=== PATIENT | female | born 1960 | race Caucasian/White ===

== ENCOUNTER 2019-04-15 13:14 | Emergency (ER) | payer BC, OTHER ==
[2019-04-15 14:47] LABS: Absolute Lymphocytes (CBC) 0.9 K/uL (0.7-4.9); Basophils % 1.3 % (0-1.3); Eosinophils % 3.5 % (0-4.4); Hematocrit 42.7 % (36.0-45.0); Lymphocytes % 17.7 % (15.3-44.8); MPV 7.8 fL (7.6-11.3); Monocytes % 7.4 % (3.3-12.3); RBC Red Blood Cell Count 4.11 M/uL (3.86-4.86)
[2019-04-15 15:09] LABS: Potassium 4.5 mmol/L (3.5-5.1)
--- NOTE | 2019-04-15 15:26 | ER ---
Nurse's Notes [facility] Name: Alena Vázquez Age: 58 yrs Sex: Female : 1960 Arrival Date: 04/15/2019 Time: 13:15 Bed 30 Private MD: Jan Robertson T Diagnosis: Paresthesia of skin Presentation: 04/15 13:34 Presenting complaint: Patient states: numbness all over body that began when patient ss woke up this morning at 1200. Transition of care: patient was not received from another setting of care. Onset of symptoms was April 15, 2019. Risk Assessment: Do you want to hurt yourself or someone else? Patient reports no desire to harm self or others. Initial Sepsis Screen: Does the patient meet any 2 criteria? No. Patient's initial sepsis screen is negative. Does the patient have a suspected source of infection? No. Patient's initial sepsis screen is negative. 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 Care prior to arrival: None. 13:34 Method Of Arrival: Ambulatory ss 13:34 Acuity: KADEN 3 ss Historical: - Allergies: 13:36 Iodinated Contrast Media - IV Dye; ss - Immunization history:: Adult Immunizations up to date. - Social history:: Smoking status: Patient uses tobacco products, smokes one-half pack cigarettes per day. - Ebola Screening: : Patient denies exposure to infectious person Patient denies travel to an Ebola-affected area in the 21 days before illness onset. Screenin:46 Abuse screen: Denies threats or abuse. Denies injuries from another. Nutritional rv screening: No deficits noted. Tuberculosis screening: No symptoms or risk factors identified. Fall Risk None identified. Assessment: 14:42 General: Appears in no apparent distress. comfortable, Behavior is calm, cooperative. rv Pain: Denies pain. Neuro: Level of Consciousness is awake, alert, obeys commands, Oriented to person, place, time, situation. Cardiovascular: Patient's skin is warm and dry. Respiratory: Airway is patent. GI: No signs and/or symptoms were reported involving the gastrointestinal system. : No signs and/or symptoms were reported regarding the genitourinary system. EENT: No signs and/or symptoms were reported regarding the EENT system. Derm: Skin is intact. Musculoskeletal: Reports numbness in right arm and left arm. 16:08 Reassessment: No changes from previously documented assessment. Dr Pantoja talked to the rv patient, explained the results and plan of care. Dr Pantoja decided to do CT scan. Vital Signs: 13:36 BP 137 / 86; Pulse 86; Resp 16; Temp 97.7(TE); Pulse Ox 97% on R/A; Weight 83.91 kg; ss Height 5 ft. 7 in. (170.18 cm); 14:43 BP 116 / 68; Pulse 73; Resp 16; Pulse Ox 99% ; rv 16:07 BP 118 / 102; Pulse 83; Resp 16; Temp 97.8; Pulse Ox 98% ; Pain 0/10; rv 16:52 BP 116 / 98; Pulse 81; Resp 18; Temp 98; Pulse Ox 98% ; Pain 0/10; rv 13:36 Body Mass Index 28.97 (83.91 kg, 170.18 cm) ss NIH Stroke Scale Scores: 15:14 NIHSS Score: 0 gs ED Course: 13:15 Patient arrived in ED. as 13:15 Jan Robertson MD is Private Physician. as 13:36 Triage completed. ss 13:36 Arm band placed on right wrist. ss 13:53 Sonu Wahl, KANA is Primary Nurse. rv 14:02 Jose Pantoja MD is Attending Physician. gs 14:39 Inserted saline lock: 22 gauge in left forearm, using aseptic technique. Blood rv collected. 14:46 Patient has correct armband on for positive identification. Bed in low position. Call rv light in reach. Side rails up X 1. Pulse ox on. NIBP on. 16:[address] via stretcher. em2 16:16 CT completed. Patient moved back from CT. em2 16:16 CT Head Brain wo Cont In Process Unspecified. EDMS 16:40 Gene Rust MD is Referral Physician. gs 16:53 No provider procedures requiring assistance completed. IV discontinued, intact, rv bleeding controlled, No redness/swelling at site. Pressure dressing applied. Administered Medications: No medications were administered Outcome: 15:25 Discharge ordered by MD. gs 16:40 Discharge ordered by . gs 16:53 Discharged to home ambulatory. rv 16:53 Condition: good 16:53 Discharge instructions given to patient, family, Instructed on discharge instructions, follow up and referral plans. Demonstrated understanding of instructions, follow-up care. 16:53 Patient left the ED. rv NIH Stroke Scale - NIH Stroke Score Date: 04/15/2019 Time: 15:14 Total Score = 0 1a. Level of Consciousness (LOC) - 0(Alert) 1b. Level of Consciousness (LOC) (Year \T\ Age) - 0(Both) 1c. LOC Commands (Open \T\ Closes Eyes/Superintendent Menagerie) - 0(Both) 2. Best Gaze (Lateral Gaze Paresis) - 0(Normal) 3. Visual Field Loss - 0(No visual loss) 4. Facial Palsy - 0(Normal) 5a. Left Arm: Motor (10-second hold) - 0(No drift) 5b. Right Arm: Motor (10-second hold) - 0(No drift) 6a. Left Leg: Motor (5-second hold - always test supine) - 0(No drift) 6b. Right Leg: Motor (5-second hold - always test supine) - 0(No drift) 7. Limb Ataxia (finger/nose \T\ heel/hicks - test with eyes open) - 0(Absent) 8. Sensory Loss (pinprick arms/legs/face) - 0(Normal) 9. Best Language: Aphasia (description/naming/reading) - 0(No aphasia) 10. Dysarthria (speech clarity - read or repeat words) - 0(Normal) 11. Extinction and Inattention (visual/tactile/auditory/spatial/personal) - 0(No abnormality) Initials: Signatures: Dispatcher [employer] Candace Sanchez Shelby, RN RN ss Montes, Enrique em2 Starr, Gregory, MD MD Sonu Wahl RN RN rv
--- NOTE | 2019-04-15 15:26 | EDPHYS ---
Physician Documentation [facility] Name: Alena Vázquez Age: 58 yrs Sex: Female : 1960 Arrival Date: 04/15/2019 Time: 13:15 Bed 30 Private MD: Jan Robertson T ED Physician Jose Pantoja HPI: 04/15 15:14 This 58 yrs old Female presents to ER via Ambulatory with complaints of gs Numbness. 15:14 The patient's problem is reported as paresthesias, all over. Onset: The gs symptoms/episode began/occurred gradually, yesterday. Duration: The episode is continuous. The symptoms are alleviated by nothing. The symptoms are aggravated by nothing. Associated signs and symptoms: Pertinent positives: tingling, Pertinent negatives: abdominal pain, agitation, blurred vision, chest pain, combativeness, confusion, dizziness, headache, lightheadedness, shortness of breath, vomiting. Severity of symptoms: At their worst the symptoms were mild in the emergency department the symptoms are unchanged. The patient has experienced similar episodes in the past, a few times, says has been under a lot of stress. Historical: - Allergies: 13:36 Iodinated Contrast Media - IV Dye; ss - Immunization history:: Adult Immunizations up to date. - Social history:: Smoking status: Patient uses tobacco products, smokes one-half pack cigarettes per day. - Ebola Screening: : Patient denies exposure to infectious person Patient denies travel to an Ebola-affected area in the 21 days before illness onset. ROS: 15:14 All other systems are negative. gs Exam: 15:14 Head/Face: Normocephalic, atraumatic. Eyes: Pupils equal round and reactive to light, gs extra-ocular motions intact. Lids and lashes normal. Conjunctiva and sclera are non-icteric and not injected. Cornea within normal limits. Periorbital areas with no swelling, redness, or edema. ENT: Nares patent. No nasal discharge, no septal abnormalities noted. Tympanic membranes are normal and external auditory canals are clear. Oropharynx with no redness, swelling, or masses, exudates, or evidence of obstruction, uvula midline. Mucous membranes moist. Neck: Trachea midline, no thyromegaly or masses palpated, and no cervical lymphadenopathy. Supple, full range of motion without nuchal rigidity, or vertebral point tenderness. No Meningismus. Chest/axilla: Normal chest wall appearance and motion. Nontender with no deformity. No lesions are appreciated. Cardiovascular: Regular rate and rhythm with a normal S1 and S2. No gallops, murmurs, or rubs. Normal PMI, no JVD. No pulse deficits. Respiratory: Lungs have equal breath sounds bilaterally, clear to auscultation and percussion. No rales, rhonchi or wheezes noted. No increased work of breathing, no retractions or nasal flaring. Abdomen/GI: Soft, non-tender, with normal bowel sounds. No distension or tympany. No guarding or rebound. No evidence of tenderness throughout. Back: No spinal tenderness. No costovertebral tenderness. Full range of motion. Skin: Warm, dry with normal turgor. Normal color with no rashes, no lesions, and no evidence of cellulitis. MS/ Extremity: Pulses equal, no cyanosis. Neurovascular intact. Full, normal range of motion. 15:14 Constitutional: The patient appears in no acute distress, alert, awake. 15:14 ECG was reviewed by the Attending Physician. 15:14 Neuro: Orientation: is normal, Mentation: is normal, Memory: is normal, Cranial nerves: CN II- XII are normal as tested, Cerebellar function: is grossly normal, Motor: moves all fours, strength is 5/5 in all extremities, Sensation: no obvious gross deficits. Vital Signs: 13:36 BP 137 / 86; Pulse 86; Resp 16; Temp 97.7(TE); Pulse Ox 97% on R/A; Weight 83.91 kg; ss Height 5 ft. 7 in. (170.18 cm); 14:43 BP 116 / 68; Pulse 73; Resp 16; Pulse Ox 99% ; rv 16:07 BP 118 / 102; Pulse 83; Resp 16; Temp 97.8; Pulse Ox 98% ; Pain 0/10; rv 16:52 BP 116 / 98; Pulse 81; Resp 18; Temp 98; Pulse Ox 98% ; Pain 0/10; rv 13:36 Body Mass Index 28.97 (83.91 kg, 170.18 cm) NIH Stroke Scale Scores: 15:14 NIHSS Score: 0 gs MDM: 14:15 Patient medically screened. gs 15:14 Differential diagnosis: metabolic disorder, drug effects. Data reviewed: vital signs, nurses notes. Counseling: I had a detailed discussion with the patient and/or guardian regarding: the historical points, exam findings, and any diagnostic results supporting the discharge/admit diagnosis, the need for outpatient follow up. Response to treatment: the patient's symptoms have resolved after treatment, the patient's condition has returned to base line, and as a result, I will discharge patient. 16:39 Data reviewed: lab test result(s), EKG, radiologic studies. 04/15 14:15 Order name: CBC with Diff; Complete Time: 15:13 04/15 14:15 Order name: Basic Metabolic Panel; Complete Time: 15:13 04/15 14:15 Order name: CPK; Complete Time: 15:13 04/15 14:15 Order name: EKG; Complete Time: 14:18 04/15 14:15 Order name: EKG - Nurse/Tech; Complete Time: 14:25 04/15 15:48 Order name: CT Head Brain wo Cont; Complete Time: 16:38 gs EC:14 Rate is 73 beats/min. Rhythm is regular. SD interval is normal. QRS interval is normal. T waves are Inverted in lead V3. Clinical impression: NSR w/ Non-specific ST/T Changes and Abnormal EKG without significant change. Interpreted by me. Administered Medications: No medications were administered Disposition: 04/15/19 16:40 Discharged to Home. Impression: Paresthesia of skin. - Condition is Stable. - Discharge Instructions: Paresthesia, Iesp-hr-Eegm, Generalized Anxiety Disorder. - Medication Reconciliation Form, Thank You Letter, Antibiotic Education, Prescription Opioid Use form. - Follow up: Gene Rust MD; When: 2 - 3 days; Reason: Re-evaluation by your physician. - Problem is new. - Symptoms have improved. NIH Stroke Scale - NIH Stroke Score Date: 04/15/2019 Time: 15:14 Total Score = 0 1a. Level of Consciousness (LOC) - 0(Alert) 1b. Level of Consciousness (LOC) (Year \T\ Age) - 0(Both) 1c. LOC Commands (Open \T\ Closes Eyes/Catering Sales Manager) - 0(Both) 2. Best Gaze (Lateral Gaze Paresis) - 0(Normal) 3. Visual Field Loss - 0(No visual loss) 4. Facial Palsy - 0(Normal) 5a. Left Arm: Motor (10-second hold) - 0(No drift) 5b. Right Arm: Motor (10-second hold) - 0(No drift) 6a. Left Leg: Motor (5-second hold - always test supine) - 0(No drift) 6b. Right Leg: Motor (5-second hold - always test supine) - 0(No drift) 7. Limb Ataxia (finger/nose \T\ heel/hicks - test with eyes open) - 0(Absent) 8. Sensory Loss (pinprick arms/legs/face) - 0(Normal) 9. Best Language: Aphasia (description/naming/reading) - 0(No aphasia) 10. Dysarthria (speech clarity - read or repeat words) - 0(Normal) 11. Extinction and Inattention (visual/tactile/auditory/spatial/personal) - 0(No abnormality) Initials: Signatures: Dispatcher [employer] EDMS Cindy Atkinson RN RN ss Jose Pantoja MD MD Sonu Wahl RN RN rv Corrections: (The following items were deleted from the chart) 15:47 15:25 04/15/2019 15:25 Discharged to Home. Impression: Hyperventilation; Paresthesia of skin. Condition is Stable. Forms are Medication Reconciliation Form, Thank You Letter, Antibiotic Education, Prescription Opioid Use. Follow up: Private Physician; When: 2 - 3 days; Reason: Re-evaluation by your physician. 16:53 16:40 04/15/2019 16:40 Discharged to Home. Impression: Paresthesia of skin. rv Condition is Stable. Forms are Medication Reconciliation Form, Thank You Letter, Antibiotic Education, Prescription Opioid Use. Follow up: Gene Rust; When: 2 - 3 days; Reason: Re-evaluation by your physician. Problem is new. Symptoms have improved.
--- NOTE | 2019-04-15 16:32 | RAD REPORT ---
EXAM DESCRIPTION: CT - Head Brain Wo Cont - 04/15/2019 4:16 pm CLINICAL HISTORY: Weakness, numbness, stroke-like symptoms COMPARISON: None. TECHNIQUE: Axial 5 mm thick images of the head were obtained without IV contrast. All CT scans are performed using dose optimization technique as appropriate and may include automated exposure control or mA/KV adjustment according to patient size. FINDINGS: No intracranial hemorrhage, mass, edema or shift of mid-line structures. No acute infarcti on changes seen. No cortical edema or sulcal effacement. Patient does appear to have some mild atroph y change for age. Minimal chronic ischemic change suspected as well. Ventricles are normal. Mastoid air cells and visualized portions of the paranasal sinuses are clear. No acute bony findings. IMPRESSION: Negative non-contrast CT head examination for acute intracranial process.
[2019-04-15 18:08] VITALS: O2SAT 98
[2019-04-15 18:09] VITALS: BP 116/98; TEMP 98
--- NOTE | 2019-04-15 23:20 | EKG ---
Test Date: 2019-04-15 Test Time: 14:26:34 Cnc Applications Engineer: RV MEASUREMENT RESULTS: Intervals: Rate: 73 KS: 156 QRSD: 80 QT: 378 QTc: 416 [place]: P: 63 KS: 156 QRS: 74 T: 54 INTERPRETIVE STATEMENTS: Normal sinus rhythm Nonspecific ST abnormality Abnormal ECG Compared to ECG 11/02/2000 13:41:00 ST (T wave) deviation now present Electronically Signed On 04-15-19 23:19:43 CDT by Abdon Doll
== END 2019-04-15 16:53 | disposition home or self-care (01) ==
LOC: ER 13:14
DX: R20.2 Paresthesia of skin (principal); F17.210 Nicotine dependence, cigarettes, uncomplicated; Z91.041 Radiographic dye allergy status
CPT/HCPCS: 36415; 70450; 80048; 82550; 85025; 93005; 99284

== ENCOUNTER 2021-04-18 21:56 | Emergency (ER) | payer BC ==
[2021-04-18] MEDS ORDERED: Ringers Lactate 1,000 ML IV ONE (22:35)
[2021-04-18 23:06] LABS: Absolute Lymphocytes (CBC) 1.5 K/uL (0.7-4.9); Hematocrit 42.2 % (36.0-45.0); Lymphocytes % 29.6 % (15.3-44.8); MPV 8.2 fL (7.6-11.3); RBC Red Blood Cell Count 4.41 M/uL (3.86-4.86)
[2021-04-18 23:16] LABS: Barbiturates NEGATIVE (NEGATIVE); Benzodiazepines NEGATIVE (NEGATIVE); Cocaine NEGATIVE (NEGATIVE); METHAMPHETAM NEGATIVE (NEGATIVE); Methadone NEGATIVE (NEGATIVE); Opiates NEGATIVE (NEGATIVE); Phencyclidine NEGATIVE (NEGATIVE); THC Cannibis NEGATIVE (NEGATIVE)
[2021-04-18 23:17] LABS: ALT/SGPT 61 U/L (12-78); AST/SGOT 43 U/L (15-37); Albumin 4.5 g/dL (3.4-5.0); Alkaline Phosphatase 46 U/L (45-117); BUN Blood Urea Nitrogen 4 mg/dL (7-18); Bicarbonate 25 mmol/L (21-32); Bilirubin Direct 0.2 mg/dL (0-0.2); Bilirubin Total 0.4 mg/dL (0.2-1.0); Glucose Level 94 mg/dL (74-106); Potassium 3.4 mmol/L (3.5-5.1); Protein, Total 8.1 g/dL (6.4-8.2); Sodium Level 135 mmol/L (136-145)
--- NOTE | 2021-04-18 23:33 | EDPHYS ---
Physician Documentation [facility] Name: Alena Vázquez Age: 60 yrs Sex: Female : 1960 Arrival Date: 04/18/2021 Time: 21:59 Bed 4 Private MD: ED Physician Jovani Bazan HPI: 04/18 22:33 This 60 yrs old Female presents to ER via EMS with complaints of Head Injury. jr8 22:33 The patient or guardian reports a laceration, pain. The complaints affect the right jr8 occipital area. Context of injury: The problem was sustained at home, resulted from a fall. Onset: The symptoms/episode began/occurred acutely, today. Associated signs and symptoms: Loss of consciousness: This patient experience a loss of consciousness, that was brief. Severity of symptoms: At their worst the symptoms were moderate, in the emergency department the symptoms are unchanged. The patient has not experienced similar symptoms in the past. The patient has not recently seen a physician. Patient stated that she had alcoholic beverage today. Had been drinking water throughout day though. Had gone to go to the bathroom. Stated that she collapsed and hit the back of her head. stated that she had + LOC. Patient A\T\O x4 currently. Historical: - Allergies: 22:06 Iodinated Contrast Media - IV Dye; ea - Immunization history: Last tetanus immunization: unknown. - Social history:: Smoking status: Patient denies any tobacco usage or history of. ROS: 22:33 Eyes: Negative for injury, pain, redness, and discharge, ENT: Negative for injury, jr8 pain, and discharge, Neck: Negative for injury, pain, and swelling, Cardiovascular: Negative for chest pain, palpitations, and edema, Respiratory: Negative for shortness of breath, cough, wheezing, and pleuritic chest pain, Abdomen/GI: Negative for abdominal pain, nausea, vomiting, diarrhea, and constipation, Back: Negative for injury and pain, MS/Extremity: Negative for injury and deformity. 22:33 Skin: Positive for laceration(s), of the right occipital area. 22:33 Neuro: Positive for headache. Exam: 23:23 Constitutional: This is a well developed, well nourished patient who is awake, alert, jr8 and in no acute distress. Eyes: Pupils equal round and reactive to light, extra-ocular motions intact. Lids and lashes normal. Conjunctiva and sclera are non-icteric and not injected. Cornea within normal limits. Periorbital areas with no swelling, redness, or edema. ENT: Nares patent. No nasal discharge, no septal abnormalities noted. Tympanic membranes are normal and external auditory canals are clear. Oropharynx with no redness, swelling, or masses, exudates, or evidence of obstruction, uvula midline. Mucous membranes moist. Neck: Trachea midline, no thyromegaly or masses palpated, and no cervical lymphadenopathy. Supple, full range of motion without nuchal rigidity, or vertebral point tenderness. No Meningismus. Cardiovascular: Regular rate and rhythm with a normal S1 and S2. No gallops, murmurs, or rubs. Normal PMI, no JVD. No pulse deficits. Respiratory: Lungs have equal breath sounds bilaterally, clear to auscultation and percussion. No rales, rhonchi or wheezes noted. No increased work of breathing, no retractions or nasal flaring. Abdomen/GI: Soft, non-tender, with normal bowel sounds. No distension or tympany. No guarding or rebound. No evidence of tenderness throughout. Back: No spinal tenderness. No costovertebral tenderness. Full range of motion. Skin: Warm, dry with normal turgor. Normal color with no rashes, no lesions, and no evidence of cellulitis. MS/ Extremity: Pulses equal, no cyanosis. Neurovascular intact. Full, normal range of motion. Neuro: Awake and alert, GCS 15, oriented to person, place, time, and situation. Cranial nerves II-XII grossly intact. Motor strength 5/5 in all extremities. Sensory grossly intact. Cerebellar exam normal. Normal gait. 23:23 Head/face: Noted is a laceration(s), that is deep, that is jagged, 6 cm(s), of the right occipital area. Vital Signs: 22:01 BP 147 / 83; Pulse 90; Resp 19; Temp 97.6; Pulse Ox 95% on R/A; Weight 72.57 kg; Height ea 5 ft. 6 in. (167.64 cm); 23:39 BP 129 / 79 LA Supine (auto/reg); Pulse 79 MON; Resp 18 S; Pulse Ox 98% on R/A; Pain bs2 0/10; 22:01 Body Mass Index 25.82 (72.57 kg, 167.64 cm) ea Naches Coma Score: 22:04 Eye Response: spontaneous(4). Verbal Response: oriented(5). Motor Response: obeys ea commands(6). Total: 15. 22:33 Eye Response: spontaneous(4). Verbal Response: oriented(5). Motor Response: obeys jr8 commands(6). Total: 15. 23:39 Eye Response: spontaneous(4). Verbal Response: oriented(5). Motor Response: obeys bs2 commands(6). Total: 15. Trauma Score (Adult): 22:04 Eye Response: spontaneous(1); Verbal Response: oriented(1); Motor Response: obeys ea commands(2); Systolic BP: > 89 mm Hg(4); Respiratory Rate: 10 to 29 per min(4); Naches Score: 15; Trauma Score: 12 23:39 Eye Response: spontaneous(1); Verbal Response: oriented(1); Motor Response: obeys bs2 commands(2); Systolic BP: > 89 mm Hg(4); Respiratory Rate: 10 to 29 per min(4); Veena Score: 15; Trauma Score: 12 Laceration: 23:23 Wound Repair of 6cm ( 2.4in ) subcutaneous laceration to right occipital area. jr8 Irregularly shaped.. Minimal bleeding noted.. Distal neuro/vascular/tendon intact. Anesthesia: Local anesthetic administered with 5 mls of 1% lidocaine w/ Epi. Wound prep: Extensive cleansing with hibiclenz, Wound irrigation with saline by nurse, Wound explored extensively, Copious irrigation. Skin closed with 8 radha Radha using staple gun. Patient tolerated well. MDM: 22:03 Patient medically screened. jr8 23:23 Data reviewed: vital signs, nurses notes, lab test result(s), EKG, radiologic studies, jr8 CT scan, and as a result, I will discharge patient. Data interpreted: Pulse oximetry: on room air is 95 %. Interpretation: normal. Counseling: I had a detailed discussion with the patient and/or guardian regarding: the historical points, exam findings, and any diagnostic results supporting the discharge/admit diagnosis, lab results, radiology results, the need for outpatient follow up, a family practitioner, to return to the emergency department if symptoms worsen or persist or if there are any questions or concerns that arise at home. 23:31 ED course: Patient up to date with tetanus. Patient has responsible alliance party bringing her jr8 home and taking care of her tonight . Will d/c home with her who is the responsible alliance party . 04/18 22:04 Order name: Basic Metabolic Panel; Complete Time: 23:25 04/18 22:04 Order name: CBC with Diff; Complete Time: 23:25 04/18 22:04 Order name: ETOH Level; Complete Time: 23:29 04/18 22:04 Order name: Hepatic Function; Complete Time: 23:25 04/18 22:04 Order name: PT-INR; Complete Time: 23:04/18 22:04 Order name: Ptt, Activated; Complete Time: 23:25 04/18 22:04 Order name: Urine Drug Screen; Complete Time: 23:25 04/18 22:04 Order name: EKG; Complete Time: 22:05 04/18 22:04 Order name: EKG - Nurse/Tech; Complete Time: 23:04/18 22:04 Order name: IV Saline Lock; Complete Time: 23:02 04/18 22:04 Order name: Labs collected and sent; Complete Time: 23:03 04/18 22:04 Order name: CT Head Brain wo Cont 04/18 22:04 Order name: Urine Dipstick-Ancillary (obtain specimen); Complete Time: 23:03 Administered Medications: 23:02 Drug: Ringers - Lactated Ringers Solution 1000 ml Route: IV; Rate: bolus; Site: right ea antecubital; 23:40 Follow up: IV Status: Completed infusion bs2 Disposition: 04/19 02:02 Co-signature as Attending Physician, Jovani Bazan MD. rn Disposition Summary: 04/18/21 23:32 Discharge Ordered Location: Home jr8 Problem: new jr8 Symptoms: have improved jr8 Condition: Stable jr8 Diagnosis - Alcohol abuse with intoxication jr8 - Laceration without foreign body of scalp jr8 Followup: jr8 - With: Private Physician - When: 1 week - Reason: Wound Recheck, Recheck today's complaints, Continuance of care, Staple/Suture removal, Re-evaluation by your physician Discharge Instructions: - Discharge Summary Sheet jr8 - Alcohol Intoxication jr8 - Laceration Care, Adult jr8 Forms: - Medication Reconciliation Form jr8 - Thank You Letter jr8 - Antibiotic Education jr8 - Prescription Opioid Use jr8 Signatures: Dispatcher [employer] EDJovani Roe MD MD rn Roszak, Josh, PA PA jr8 Coco Lin RN RN ea Smith, Bridget bs2 Corrections: (The following items were deleted from the chart) 04/18 23:30 22:04 Suicide Screening ([place]) ordered. jrCosme lubin
--- NOTE | 2021-04-18 23:33 | ER ---
Nurse's Notes [facility] Name: Alena Vázquez Age: 60 yrs Sex: Female : 1960 Arrival Date: 04/18/2021 Time: 21:59 Bed 4 Private MD: Diagnosis: Alcohol abuse with intoxication;Laceration without foreign body of scalp Presentation: 04/18 22:01 Chief complaint: EMS states: Reports pt fell in the restroom, reports she had a ea couple drinks today, reports pt may have passed out, pt denies LOC. EMS reported hematoma to back of head. Coronavirus screen: At this time, the client does not indicate any symptoms associated with coronavirus-19. Ebola Screen: No symptoms or risks identified at this time. Initial Sepsis Screen: Does the patient meet any 2 criteria? No. Patient's initial sepsis screen is negative. Does the patient have a suspected source of infection? No. Patient's initial sepsis screen is negative. Risk Assessment: Do you want to hurt yourself or someone else? Patient reports no desire to harm self or others. Onset of symptoms was April 18, 2021. 22:01 Method Of Arrival: EMS: [facility] ea 22:01 Acuity: KADEN 3 ea 22:04 Care prior to arrival: compression dressing applied per EMS, BGL 130. Mechanism of ea Injury: Fall from standing position. Trauma event details: Injury occurred in the [facility], Injury occurred: at home. Injury occurred: April 18, 2021. Trauma Activation: Alert Physician: ED Physician; Name: ; Notified At: ; Arrived At: Physician: General Surgeon; Name: ; Notified At: ; Arrived At: Physician: Radiology; Name: ; Notified At: ; Arrived At: Physician: Respiratory; Name: ; Notified At: ; Arrived At: Physician: Lab; Name: ; Notified At: ; Arrived At: Historical: - Allergies: 22:06 Iodinated Contrast Media - IV Dye; ea - Immunization history: Last tetanus immunization: unknown. - Social history:: Smoking status: Patient denies any tobacco usage or history of. Screenin:03 Abuse screen: Denies threats or abuse. Nutritional screening: No deficits noted. ea Tuberculosis screening: No symptoms or risk factors identified. Fall Risk None identified. Primary Survey: 22:03 NO uncontrolled hemorrhage observed. A: The patient is alert. Airway: patent. ea Breathing/Chest: Respiratory pattern: regular, Respiratory effort: spontaneous. Circulation: Skin color: pink. Disability Alert. Exposure/Environment: Obvious injury(ies) are noted at this time: laceration to back of head A warming method has been applied: A warm blanket has been provided to the patient. 23:35 Reassessment Breathing/Chest Respiratory pattern Regular Respiratory effort Spontaneous bs2 Breath sounds Clear Chest inspection Symmetrical. Assessment: 22:04 General: Appears uncomfortable, Behavior is appropriate for age. Pain: Denies pain. ea Neuro: Level of Consciousness is awake, alert, obeys commands, Oriented to person, place, time. Cardiovascular: Patient's skin is warm and dry. Respiratory: Airway is patent Respiratory effort is even, unlabored, Respiratory pattern is regular, symmetrical. Derm: Skin is pink, warm \T\ dry. 04/19 00:06 Reassessment: Patient and/or family updated on plan of care and expected duration. Pain ea level reassessed. Patient is alert, oriented x 3, equal unlabored respirations, skin warm/dry/pink. Discharge instruction given to patient verbalized the understanding of instruction. Pt left ED via wheelchair per . Pt tolerating well. Vital Signs: 07 22:01 BP 147 / 83; Pulse 90; Resp 19; Temp 97.6; Pulse Ox 95% on R/A; Weight 72.57 kg; Height ea 5 ft. 6 in. (167.64 cm); 23:39 BP 129 / 79 LA Supine (auto/reg); Pulse 79 MON; Resp 18 S; Pulse Ox 98% on R/A; Pain bs2 0/10; 22:01 Body Mass Index 25.82 (72.57 kg, 167.64 cm) ea Pharr Coma Score: 22:04 Eye Response: spontaneous(4). Verbal Response: oriented(5). Motor Response: obeys ea commands(6). Total: 15. 22:33 Eye Response: spontaneous(4). Verbal Response: oriented(5). Motor Response: obeys jr8 commands(6). Total: 15. 23:39 Eye Response: spontaneous(4). Verbal Response: oriented(5). Motor Response: obeys bs2 commands(6). Total: 15. Trauma Score (Adult): 22:04 Eye Response: spontaneous(1); Verbal Response: oriented(1); Motor Response: obeys ea commands(2); Systolic BP: > 89 mm Hg(4); Respiratory Rate: 10 to 29 per min(4); Veena Score: 15; Trauma Score: 12 23:39 Eye Response: spontaneous(1); Verbal Response: oriented(1); Motor Response: obeys bs2 commands(2); Systolic BP: > 89 mm Hg(4); Respiratory Rate: 10 to 29 per min(4); Pharr Score: 15; Trauma Score: 12 ED Course: 21:59 Patient arrived in ED. mw2 22:03 Triage completed. ea 22:03 Jersey Rowley PA is PHCP. jr8 22:03 Jovani Bazan MD is Attending Physician. jr8 22:03 Arm band placed on right wrist. Patient placed in an exam room, on a stretcher, on ea pulse oximetry. 22:04 Patient has correct armband on for positive identification. Bed in low position. Call ea light in reach. Side rails up X2. 22:04 Patient maintains SpO2 saturation greater than 95% on room air. ea 22:06 Thermoregulation: warm blanket given to patient. ea 22:08 Coco Lin, RN is Primary Nurse. ea 22:13 CT Head Brain wo Cont In Process Unspecified. EDMS 23:00 Inserted saline lock: 20 gauge in right antecubital area, using aseptic technique. ea 23:34 Assist provider with laceration repair on right parietal area that was between 7.6 to bs2 12.5 cm using radha. Set up tray. Performed by Jersey STANTON Dressed with Patient tolerated well. 04/19 00:06 IV discontinued, intact, bleeding controlled, No redness/swelling at site. Pressure ea dressing applied. Administered Medications: 04/18 23:02 Drug: Ringers - Lactated Ringers Solution 1000 ml Route: IV; Rate: bolus; Site: right ea antecubital; 23:40 Follow up: IV Status: Completed infusion bs2 Intake: 23:35 IV: 1000ml; Total: 1000ml. bs2 Output: 23:35 Urine: 1700ml (Voided); Total: 1700ml. bs2 Outcome: 23:32 Discharge ordered by . jrCosme 04/19 00:06 Discharged to home ambulatory, with family. ea Condition: stable Discharge instructions given to patient, family, Instructed on discharge instructions, follow up and referral plans. Demonstrated understanding of instructions, follow-up care. 00:06 Patient's length of stay was not longer than 2 hours. ea 00:09 Patient left the ED. bb Signatures: Dispatcher [employer] Emily Boss RN RN bb Roszak, Josh, PA PA jr8 Coco Lin RN RN ea [place], MyKena mw2 Saige Marshall bs2
[2021-04-18] MEDS ORDERED: LIDOCAINE 1% W/EPI 1:100,000 MDV 20 ML VIAL ONE (23:34)
[2021-04-19 00:17] VITALS: TEMP 97.6
[2021-04-19 00:19] VITALS: BP 129/79; O2SAT 98
--- NOTE | 2021-04-19 06:18 | EKG ---
Test Date: 2021-04-18 Test Time: 22:53:34 Tie Maker: ISAAC MEASUREMENT RESULTS: Intervals: Rate: 80 OR: 148 QRSD: 72 QT: 360 QTc: 415 Ringling: P: 58 OR: 148 QRS: 60 T: 54 INTERPRETIVE STATEMENTS: Normal sinus rhythm ST & T wave abnormality, consider anterior ischemia Abnormal ECG Compared to ECG 04/15/2019 14:26:34 Possible ischemia now present ST (T wave) deviation still present Electronically Signed On 04-19-21 06:17:38 CDT by Kang Taylor
--- NOTE | 2021-04-19 11:36 | RAD REPORT ---
EXAM DESCRIPTION: Head Brain Wo Cont. RadLex: CT HEAD WITHOUT IV CONTRAST CLINICAL HISTORY: TRAUMA. TECHNIQUE: Axial, coronal, and sagittal images through the brain were performed in the absence of in travenous contrast. This exam was performed according to our departmental dose-optimization program w hich includes use of Automated Exposure Control, adjustment of the mA and/or kV according to patient size and/or use of iterative reconstruction technique. COMPARISON: CT head from April 15, 2019. FINDINGS: The brain parenchyma appears unremarkable. There is no intra-axial or extra-axial bleed se en. There is no mass or mass effect. The ventricles are normal in size shape and configuration. The o rbital contents appear unremarkable. The visualized paranasal sinuses and mastoid air cells are patent. Right parietal scalp hematoma. No acute fracture is identified. IMPRESSION: 1. No acute intracranial abnormality identified. 2. Right parietal scalp hematoma. Electronically signed by: Kayley Krishna MD 04/18/2021 10:34 PM CDT Due to temporary technical issues with the PACS/Fluency reporting system, reports are being signed by the in house radiologist without review as a courtesy to ensure prompt reporting. The interpreting r adiologist is fully responsible for the content of the report.
== END 2021-04-19 00:09 | disposition home or self-care (01) ==
LOC: ER 21:56
PROC: 0JQ10ZZ Repair Face Subcutaneous Tissue and Fascia, Open Approach (ICD-10-PCS; principal; 2021-04-19)
DX: S01.81XA Laceration without foreign body of other part of head, initial encounter (principal); F10.129 Alcohol abuse with intoxication, unspecified; W19.XXXA Unspecified fall, initial encounter; Y93.01 Activity, walking, marching and hiking; Y92.009 Unspecified place in unspecified non-institutional (private) residence as the place of occurrence of the external cause; Z91.041 Radiographic dye allergy status
CPT/HCPCS: 96365; 93005; 85025; 80048; 36415; 80320; 85610; 80076; 85730; 80307; 70450; 99284; 12014; J7120; G0390